=== PATIENT | female | born 1985 ===

== ENCOUNTER 2020-09-17 14:01 | Emergency (ER) | payer MEDICAID ==
--- NOTE | 2020-09-17 14:45 | Emergency Department Report ---
ED Lower Extremity HPI - General Chief Complaint: Extremity Injury, Lower Stated Complaint: LT KNEE PAIN Time Seen by Provider: 09/17/20 14:39 Source: patient Mode of arrival: Ambulatory Limitations: No Limitations - History of Present Illness Initial Comments: 34-year-old female with a past medical history of hypertension presents to the ER today with complaints of left knee. She states that pain has been intermittent since. It eases up when she rest but will soon as she starts walking to becomes more painful. She states that she feels like when she is walking her knee is about to give out. She denies any apparent swelling, bruising or erythema. She denies prior issues with that knee in the past. She reports no other symptoms at this time. MD Complaint: knee injury -: Sudden - Related Data Previous Rx's Medication Instructions Recorded Last Taken Type Ibuprofen [Motrin] 800 mg PO Q8HR PRN #30 tablet 09/17/20 Unknown Rx Allergies Allergy/AdvReac Type Severity Reaction Status Date / Time No Known Allergies Allergy Verified 09/17/20 14:13 ED Review of Systems ROS: Stated complaint: LT KNEE PAIN Other details as noted in HPI Comment: All other systems reviewed and negative Constitutional: denies: chills, fever Eyes: denies: eye pain, eye discharge, vision change ENT: denies: ear pain, throat pain Respiratory: denies: cough, shortness of breath, wheezing Cardiovascular: denies: chest pain, palpitations, edema, syncope, paroxysmal nocturnal dyspnea Gastrointestinal: denies: abdominal pain, nausea, diarrhea, constipation, hematemesis, melena, hematochezia Genitourinary: denies: urgency, dysuria, frequency, hematuria, discharge, abnormal menses, dyspareunia Musculoskeletal: joint swelling, arthralgia. denies: back pain Skin: denies: rash, lesions Neurological: denies: headache, weakness, numbness, paresthesias, confusion, abnormal gait Psychiatric: denies: anxiety, depression ED Past Medical Hx - Past Medical History Hx Hypertension: Yes - Surgical History Additional Surgical History: x1 - Social History Smoking Status: Current Every Day Smoker Substance Use Type: None - Medications Home Medications: Home Medications Medication Instructions Recorded Confirmed Last Taken Type Ibuprofen [Motrin] 800 mg PO Q8HR PRN #30 tablet 09/17/20 Unknown Rx ED Physical Exam - General Limitations: No Limitations General appearance: alert, in no apparent distress - Head Head exam: Present: atraumatic, normocephalic, normal inspection - Eye Eye exam: Present: normal appearance, PERRL, EOMI Pupils: Present: normal accommodation - ENT ENT exam: Present: normal exam, mucous membranes moist - Neck Neck exam: Present: normal inspection, full ROM - Respiratory Respiratory exam: Present: normal lung sounds bilaterally. Absent: respiratory distress - Cardiovascular Cardiovascular Exam: Present: regular rate, normal rhythm, normal heart sounds - GI/Abdominal GI/Abdominal exam: Present: soft. Absent: distended, tenderness, guarding, rebound - Expanded Lower Extremity Exam Left Knee exam: Present: full ROM (But it is painful), tenderness (Tenderness to the medial aspect of the left knee), swelling (Very mild to the medial aspect of the left knee), full knee extension. Absent: abrasion, laceration, ecchymosis, deformity, crepidus, dislocation, erythema, effusion, pain w/ pronation/supination, posterior draw sign, pain/laxity with valgus, pain/laxity with varus Neuro vascular tendon exam: Present: no vascular compromise Gait: Positive: observed and normal - Neurological Exam Neurological exam: Present: alert, oriented X3, CN II-XII intact, normal gait - Psychiatric Psychiatric exam: Present: normal affect, normal mood - Skin Skin exam: Present: intact ED Course Vital Signs 09/17/20 15:30 Temperature 99.0 F Pulse Rate 88 Blood Pressure 154/102 [Left] O2 Sat by Pulse 100 Oximetry ED Lower Extremity MDM - Radiology Data Radiology results: report reviewed Patient: MICAELA GONZALES MR#: [id number] : 1985 Acct:[id number] Age/Sex: 34 / F ADM Date: 09/17/20 Loc: ED Attending Dr: Ordering Physician: ELSA THOMPSON Date of Service: 09/17/20 Procedure(s): XR knee 3V LT Accession Number(s): [id number] cc: ELSA THOMPSON Fluoro Time In Minutes: LEFT KNEE 3 VIEWS INDICATION / CLINICAL INFORMATION: Left knee iinjury. COMPARISON: None available. FINDINGS: No significant skeletal abnormality Signer Name: Aniceto Gallo MD FACR Signed: 09/17/2020 3:09 PM Workstation Name: [id number] Transcribed By: MS Dictated By: Aniceto Gallo MD Electronically Authenticated By: Aniceto Gallo MD Signed Date/Time: 09/17/201508 DD/ 07 TD/TT: Critical care attestation.: If time is entered above; I have spent that time in minutes in the direct care of this critically ill patient, excluding procedure time. ED Disposition Clinical Impression: Knee sprain Disposition: TO HOME OR SELFCARE Is pt being admited?: No Does the pt Need Aspirin: No Condition: Stable Instructions: Knee Sprain, Adult, [id number] Additional Instructions: Elevate your leg as often as possible for the next 2 to 3 days, you can apply ice to the area that is painful and swollen, you can use the Davon wrap or the knee brace as instructed. Take the Motrin as prescribed to help with pain and swelling. Recommend follow-up with event marketing specialist if your symptoms persist for another 1 to 2 weeks for further evaluation and possible MRI. Return to the ER if your symptoms changes or worsens in any way. Prescriptions: Ibuprofen [Motrin] 800 mg PO Q8HR PRN #30 tablet PRN Reason: pain Referrals: CHING LARSON MD [Staff Physician] - 3-5 Days Forms: Work/School Release Form(ED) Time of Disposition: 15:31
--- NOTE | 2020-09-17 15:13 | XRay Report ---
LEFT KNEE 3 VIEWS INDICATION / CLINICAL INFORMATION: Left knee iinjury. COMPARISON: None available. FINDINGS: No significant skeletal abnormality Signer Name: Aniceto Gallo MD FACR Signed: 09/17/2020 3:09 PM Workstation Name: [email or web address]
[2020-09-17 16:31] VITALS: BP 154/102
== END 2020-09-17 16:31 | disposition home or self-care (01) ==
LOC: ED 14:01
DX: S83.92XA Sprain of unspecified site of left knee, initial encounter (principal); I10 Essential (primary) hypertension; F17.200 Nicotine dependence, unspecified, uncomplicated; Z98.890 Other specified postprocedural states; Z79.1 Long term (current) use of non-steroidal anti-inflammatories (NSAID); X58.XXXA Exposure to other specified factors, initial encounter; Y93.89 Activity, other specified; Y92.89 Other specified places as the place of occurrence of the external cause; Y99.8 Other external cause status